=== PATIENT | female | born 1960 | race African-American/Black ===

== ENCOUNTER 2016-05-31 06:42 | Day surgery (SDC) | payer BC ==
[~2016-05-31] VITALS: Ht 162.6 cm; Wt 77.1 kg
--- NOTE | ~2016-05-31 | OP ---
PATIENT NAME: SHAR DENNY MEDICAL RECORD: [id number] :56 LOCATION:D[facility]OPS ADMISSION DATE: SURGEON: MARIBETH SUGGS MD DATE OF OPERATION: 05/31/2016 REFERRING PHYSICIAN: Zahra Chen MD. PREOPERATIVE DIAGNOSIS: Chronic kidney disease stage V. SURGEON: Maribeth Suggs MD. OPERATION PERFORMED: Creation of a left wrist radiocephalic Cheryl type AV fistula. PREOPERATIVE NOTE: Ms. Denny is a very nice 55-year-old -[place] Citizen female with diabetes and hypertension who also has severe chronic renal insufficiency and is anticipated to require dialysis. She was referred to me by Dr. Chen for creation of a hemodialysis access. DESCRIPTION OF PROCEDURE: With the patient under general anesthesia by CHARGE AIDE with an LMA, she was placed in supine position with the left arm abducted and the arm prepped and draped in a sterile manner. I used a [place] drain for proximal venous tourniquet and applied nitroglycerin paste to the skin of the arm and forearm. I examined her with a B-mode ultrasound and found that her cephalic vein in the upper arm was disappointingly small. The cephalic vein in the forearm distally was adequate for creation of a fistula, although it was an awkward distance from the adjacent radial artery. I eventually ended up using the cephalic vein at the wrist in the radial artery for Cheryl fistula. Proximally in the forearm, the median antecubital vein, which is basically the runoff from the Cheryl fistula does pass in close proximity to the proximal radial artery and the distal brachial artery, so in the future, the patient might be a candidate for a proximal radial artery cephalic or median antecubital vein fistula. The basilic vein in the upper arm is dominant, although not enormous. At the level of the antecubital space, it is very far medial, so once again, it is an awkward distance from the brachial artery for brachiobasilic AV fistula. The median cubital vein, which goes to the basilic, is quite small. The arteries, brachial and radial has a somewhat thickened intima, but did not demonstrate calcifications and were on normal diameters. I made a longitudinal incision at the wrist and raised a flap and exposed and mobilized the distal "cephalic vein" It was closed distally with a Hemoclip and then transected and bevelled, preserving as much length as possible in order to be able to reach over to the radial artery. The vein was treated with topical papaverine, it was flushed and dilated hydrostatically with heparinized saline and treated as well with antibiotic-containing saline irrigation. The valves and the vein were competent and there was no need for any traumatic clamping. The artery was exposed and mobilized and controlled proximally and distally with Silastic loops. The artery was opened and flushed proximally and distally with dilute heparinized saline and the vein was then anastomosed to the side of the artery, creating about a 4-mm diameter, perhaps 5 mm diameter anastomosis. This was done with a running 7-0 Prolene. Evicel was used to complete the anastomosis and assure hemostasis and with release of the occluding loops, the suture line was indeed hemostatic and developed good flow in the cephalic vein by Doppler examination and there was a palpable thrill and pulsation in the vein as well. Hemostasis was adequate. The wound was one last time irrigated with OPERATIVE REPORT [id number] DENISHA,SHAR Ancef and gentamicin solution and the radial artery, treated with topical papaverine. The wound was infiltrated and irrigated with 0.25% Marcaine without epinephrine. The wound was closed with a fairly widely spaced inverted 3-0 Vicryl for subQ. The skin was closed with running intracuticular 4-0 Monocryl and Dermabond glue. Dressing of Maxorb Ag, Tegaderm and Cavilon skin prep was applied. The patient was subsequently awakened and taken to the recovery room in stable condition. During surgery, the patient had a sudden drop in O2 saturation, the etiology of which is unclear. In the recovery room, she has a higher O2 sat, though still lower than it should be on supplemental oxygen. A chest x-ray is pending. I am not aware of her having any difficulties with ventilation or pulmonary functions. PLAN: If the patient's respiratory status permits and continues to improve, she should be able to go home today. She can resume activities as tolerated. She was given a prescription for 20 [place] 5 mg tablets. She can take 1 p.o. q.4 hours p.r.n. pain and an appointment will be made for her to return to see me in my office next week. Until then, she is to leave the original operative dressing intact. She and wash over the waterproof dressing was soap and water, so she may shower. She will continue all of her home medications and diet. TRANSINT:[id number] Voice Confirmation ID: [id number] DOCUMENT ID: [id number] MARIBETH SUGGS MD CC: ZAHRA CHEN MD [id number] DICTATION DATE: 05/31/16 144 [employer] OPERATOR: 05/31/[address] [facility] 05/31/16 [id number] [place] [address]
[2016-05-31 09:11] LABS: BASOPHILS 0.1 % (0.0-2.0); EOSINOPHILS 1.5 % (0-7); HEMOGLOBIN 9.3 g/dL (12-16); IMMATURE GRANULOCYTES 0.3 % (0-5); LYMPHOCYTES 16.4 % (15-50); MCH 29.2 pg (26.0-34.0); MCHC 32.1 g/dL (31.0-37.0); MCV 90.9 fL (80.0-100.0); MEAN PLATELET VOLUME 8.6 fL (7.4-10.4); NEUTROPHILS 75.7 % (40-80); PLATELET COUNT 303 10x3/uL (130-400); RBC 3.19 10x6/uL (4.00-5.40); RDW 15.6 % (11.5-14.5); WBC 11.1 10x3/uL (4.8-10.8)
[2016-05-31] MEDS ORDERED: LASIX80 MG PO (09:12)
[2016-05-31] MEDS ORDERED: PRAVACHOL40 MG PO (09:12)
[2016-05-31] MEDS ORDERED: HYDRALAZINE HC100 MG PO (09:12)
[2016-05-31] MEDS ORDERED: ZYLOPRIM100 MG PO (09:14)
[2016-05-31] MEDS ORDERED: COZAAR100 MG PO (09:14)
[2016-05-31] MEDS ORDERED: TOPROL XL100 MG PO (09:14)
[2016-05-31] MEDS ORDERED: NORVASC10 MG PO (09:15)
[2016-05-31] MEDS ORDERED: LUMIGAN 0.01%2.5 ML EACH EYE (09:25)
[2016-05-31] MEDS ORDERED: COMBIGAN OPHT DR5 ML EACH EYE (09:25)
[2016-05-31 09:26] VITALS: BP 146/77; Ht 162.6 cm; Wt 77.1 kg
[2016-05-31 09:26] LABS: APTT 32.4 SECONDS (22.8-39.4); INR 1.1 (0.85-1.17); PROTIME 14.1 SECONDS (11.6-15.0)
[2016-05-31 09:27] LABS: ANION GAP 19.1 mmol/L (8-16); CALCIUM 8.4 mg/dL (8.5-10.1); CARBON DIOXIDE 19.8 mmol/L (21.0-32.0); CREATININE - SERUM 9.8 mg/dL (0.6-1.3); POTASSIUM - SERUM 4.9 mmol/L (3.5-5.1)
[2016-05-31] MEDS ORDERED: HYDROCODON-ACE1 EAC7 PO (14:28)
--- NOTE | 2016-05-31 19:54 | NUR ---
1600 IV DC WITH CATHER TIP INTACT
== END 2016-05-31 16:30 | disposition home or self-care (01) ==
LOC: D.OPS 06:42
PROVIDERS: Surgery
DX: N18.5 Chronic kidney disease, stage 5 (principal); I10 Essential (primary) hypertension; E11.9 Type 2 diabetes mellitus without complications; I25.10 Atherosclerotic heart disease of native coronary artery without angina pectoris; M19.90 Unspecified osteoarthritis, unspecified site